=== PATIENT | male | born 1960 | race Caucasian/White ===

== ENCOUNTER 2016-09-18 19:28 | Emergency (ER) | payer SELFPAY ==
[2016-09-18 19:38] VITALS: BP 188/111; PULSE 110; RESP 16; TEMP 97.8; O2SAT 97
[2016-09-18] MEDS ORDERED: ATOR10TA15 PO (20:17)
[2016-09-18] MEDS ORDERED: WARF4TAB52 PO (20:17)
[2016-09-18] MEDS ORDERED: ALPR1TAB3 PO (20:17)
[2016-09-18] MEDS ORDERED: HYDR-3583 PO (20:17)
[2016-09-18] MEDS ORDERED: PRAZ5CAP PO (20:17)
[2016-09-18] MEDS ORDERED: CLON1TAB PO (20:17)
[2016-09-18] MEDS ORDERED: TIZA4CAP3 PO (20:17)
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
[2016-09-18] MEDS ORDERED: IBUPROFEN 800 MG TAB PO ONE (20:45)
[2016-09-18 20:46] LABS: BLOOD, URINE NEG (NEG); COMMENT (UR) CULT NOT INDICATED; CULTURE IF INDICATED CULT NOT INDICATED; GLUCOSE,URINE NEG (NEG); HYALINE CAST, URINE 1 /lpf (RARE); KETONE, URINE NEG (NEG); MUCUS URINE FEW /lpf (OCC); NITRITE,URINE NEG (NEG); PH, URINE 5.5 (5.0-8.5); URINE COLOR YELLOW (YELLW/STRAW)
[2016-09-18 20:49] LABS: AUTOMATED NEUTROPHIL # 10.3 TH/MM3 (1.8-7.7); BASOPHIL # 0.1 TH/MM3 (0-0.2); BASOPHIL % 0.8 % (0.0-2.0); EOSINOPHIL # 0.1 TH/MM3 (0-0.4); EOSINOPHIL % 0.5 % (0.0-4.0); HEMATOCRIT 40.7 % (39.0-51.0); HEMO FLAGS DIFF FINAL; LYMPH % 8.6 % (9.0-44.0); MEAN CELL VOLUME 85.8 FL (80.0-100.0); MEAN CORPUSCULAR HEMOGLOBIN 29.6 PG (27.0-34.0); MEAN CORPUSCULAR HGB CONC 34.5 % (32.0-36.0); MONO % 3.9 % (0.0-8.0); NEUT % 86.2 % (16.0-70.0); PLATELET COUNT 247 TH/MM3 (150-450); RED BLOOD COUNT 4.74 MIL/MM3 (4.50-5.90); RED CELL DISTRIBUTION WIDTH 14.8 % (11.6-17.2)
[2016-09-18 20:53] LABS: AMPHETAMINE, URINE NEG (NEG); BARBITURATES, URINE NEG (NEG); COCAINE, URINE NEG (NEG)
[2016-09-18 21:03] LABS: APTT (PATIENT) 49.8 SEC (24.3-30.1); INTERNATIONAL NORMALIZED RATIO 4.1 RATIO; PROTHROMBIN TIME - PATIENT 48.1 SEC (9.8-11.6)
[2016-09-18 21:18] LABS: ANION GAP 7 MEQ/L (5-15); AST (GOT) 40 U/L (15-37); BICARBONATE 24.6 MEQ/L (21.0-32.0); BLOOD UREA NITROGEN 16 MG/DL (7-18); CHLORIDE 105 MEQ/L (98-107); GLOMERULAR FILTRATION RATE 77 ML/MIN (>89); POTASSIUM 4.3 MEQ/L (3.5-5.1); SODIUM (NA) 137 MEQ/L (136-145)
[2016-09-18 21:28] LABS: ALKALINE PHOSPHATASE 116 U/L (45-117); ALT (GPT) 37 U/L (12-78); TOTAL BILIRUBIN ADULT 0.6 MG/DL (0.2-1.0)
[2016-09-18 21:29] LABS: ACETAMINOPHEN LESS THAN 2.0 MCG/ML (10.0-30.0)
[2016-09-18 22:45] VITALS: BP 140/68; PULSE 82; RESP 16; O2SAT 97
[2016-09-19 09:11] VITALS: BP 162/78; PULSE 74; RESP 20; O2SAT 98
[2016-09-19 11:21] VITALS: BP 173/77; PULSE 91; RESP 16; O2SAT 95
[2016-09-19 14:07] VITALS: BP 171/86; PULSE 84; RESP 16; O2SAT 98
[2016-09-19] MEDS ORDERED: ALPRAZolam 1 MG TAB PO PRN (14:15)
[2016-09-19] MEDS ORDERED: clonazePAM 1 MG TAB PO ONE (14:15)
[2016-09-19 22:57] VITALS: BP 171/66; PULSE 81; RESP 16; O2SAT 97
[2016-09-20 02:13] VITALS: BP 167/74; PULSE 78; RESP 16; TEMP 98.2; O2SAT 97
[2016-09-20 03:38] LABS: INTERNATIONAL NORMALIZED RATIO 2.1 RATIO; PROTHROMBIN TIME - PATIENT 23.5 SEC (9.8-11.6)
[2016-09-20] MEDS ORDERED: WARFARIN SOD 5 MG TAB PO ONE (08:00)
[2016-09-20 08:23] VITALS: BP 135/66; PULSE 92; RESP 18; O2SAT 98
== END 2016-09-20 10:20 ==
LOC: NEPD 19:28 → NEPE 09-20 10:20
DX: R79.1 Abnormal coagulation profile (principal); R44.0 Auditory hallucinations; G47.00 Insomnia, unspecified; G89.29 Other chronic pain; M54.9 Dorsalgia, unspecified; Z79.01 Long term (current) use of anticoagulants
CPT/HCPCS: 80053; 80307; 81001; 84443; 85025; 85610; 85730; 99283